=== PATIENT | male | born 1995 | race Two or more races ===

== ENCOUNTER 2020-07-26 14:54 | Inpatient (IN) ==
[2020-07-26] MEDS ORDERED: Cefepime 2 GM in Dextrose 2 GM/50 ML BAG IV ONE (15:32)
[2020-07-26] MEDS ORDERED: LACTATED RINGERS IV SCH (16:00)
[2020-07-26] MEDS ORDERED: Filgrastim* 480 MCG VIAL (AUTOSUB = ZARXIO*) SUBCUT ONE (16:01)
[2020-07-26] MEDS ORDERED: Ondansetron 4 mg VIAL 2 MG/ML 2 ml VIAL IV PRN (16:26)
[2020-07-26] MEDS ORDERED: Enoxaparin 40 MG/0.4 ML SYR SUBCUT SCH (17:00)
[2020-07-26 17:05] LABS: Albumin 4.3 g/dL (3.2-5.2); BUN/Creatinine Ratio 12.1 (8-20); Calcium 9.1 mg/dL (8.6-10.3); EGFR African American 208.3 (>60); EGFR Non-African American 172.1 (>60); Globulin 2.2 g/dL (2-4); Potassium 3.8 mmol/L (3.5-5.0); Total Bilirubin 0.3 mg/dL (0.2-1.0); Total Protein 6.5 g/dL (6.4-8.9)
[2020-07-26 17:07] LABS: Activated Partial Thrombo Time 33.4 seconds (26.0-38.0); INR 1.22 (0.82-1.09)
[2020-07-26 17:25] LABS: Hematocrit 27 % (42-52); Hemoglobin 9.1 g/dL (14.0-18.0); Mean Corpuscular HGB Conc 34 g/dL (31-36); Mean Corpuscular Hemoglobin 29 pg (27-31); Mean Corpuscular Volume 86 fL (80-94); Red Blood Count 3.11 10^6 /uL (4.18-5.48); Red Cell Distribution Width 12 % (10-15); White Blood Count 0.7 10^3/uL (3.5-10.8)
[2020-07-26 17:26] LABS: ABS Lymphocytes 0.6 10^3/ul (1.0-4.8); ABS Monocytes 0.1 10^3/ul (0-0.8); Eosinophil % 0.8 %; Lymphocyte % 86.1 %; Nucleated Red Blood Cells % 0.8
[2020-07-26 18:13] LABS: Mean Platelet Volume 9.6 fL (7.4-10.4); Platelet Count 66 10^3/uL (150-450)
[2020-07-26] MEDS: NS 0.9% 1000 ml BAG 1,000 ML IV SCH (19:49)
[2020-07-26] MEDS: Senna TAB 8.6 mg TAB PO SCH (19:55)
[2020-07-26] MEDS: Cefepime 2 GM in Dextrose 2 GM/50 ML BAG IV SCH (23:59)
[2020-07-27 00:56] LABS: Urine Appearance Clear; Urine Bilirubin Negative (Negative); Urine Blood Negative (Negative); Urine Color Colorless; Urine Glucose Negative (Negative); Urine Ketones Negative (Negative); Urine Nitrite Negative (Negative); Urine Protein Negative (Negative); Urine Specific Gravity 1.006 (1.010-1.030); Urine Urobilinogen Negative (Negative)
[2020-07-27 05:46] LABS: Albumin 4.4 g/dL (3.2-5.2); Albumin/Globulin Ratio 1.8 (1-3); BUN/Creatinine Ratio 18.9 (8-20); Calcium 9.6 mg/dL (8.6-10.3); EGFR African American 231.1 (>60); Globulin 2.5 g/dL (2-4); Potassium 4.3 mmol/L (3.5-5.0); Total Bilirubin 0.4 mg/dL (0.2-1.0); Total Protein 6.9 g/dL (6.4-8.9)
[2020-07-27 08:01] LABS: Hematocrit 27 % (42-52); Hemoglobin 9.3 g/dL (14.0-18.0); Mean Corpuscular HGB Conc 34 g/dL (31-36); Mean Corpuscular Hemoglobin 29 pg (27-31); Mean Corpuscular Volume 86 fL (80-94); Mean Platelet Volume 9.9 fL (7.4-10.4); Platelet Count 67 10^3/uL (150-450); Red Blood Count 3.15 10^6 /uL (4.18-5.48); Red Cell Distribution Width 13 % (10-15); White Blood Count 0.5 10^3/uL (3.5-10.8)
[2020-07-27] MEDS: Cefepime 2 GM in Dextrose 2 GM/50 ML BAG IV SCH ×3 (08:43→23:48)
[2020-07-27] MEDS: Senna TAB 8.6 mg TAB PO SCH ×2 (09:05→20:55)
[2020-07-27] MEDS: NS 0.9% 1000 ml BAG 1,000 ML IV SCH (16:01)
[2020-07-28] MEDS: Cefepime 2 GM in Dextrose 2 GM/50 ML BAG IV SCH (07:51)
[2020-07-28] MEDS: Senna TAB 8.6 mg TAB PO SCH (07:52)
[2020-07-28 10:29] VITALS: BP 115/59
[2020-07-28 10:49] LABS: ABS Lymphocytes 0.8 10^3/ul (1.0-4.8); ABS Monocytes 0.7 10^3/ul (0-0.8); ABS Neutrophils 4.2 10^3/ul (1.5-7.7); Hematocrit 28 % (42-52); Hemoglobin 10.1 g/dL (14.0-18.0); Lymphocyte % 13.7 %; Mean Corpuscular HGB Conc 36 g/dL (31-36); Mean Corpuscular Hemoglobin 30 pg (27-31); Mean Corpuscular Volume 85 fL (80-94); Mean Platelet Volume 9.4 fL (7.4-10.4); Nucleated Red Blood Cells % 0.1; Platelet Count 70 10^3/uL (150-450); Red Blood Count 3.32 10^6 /uL (4.18-5.48); Red Cell Distribution Width 12 % (10-15); White Blood Count 5.7 10^3/uL (3.5-10.8)
[2020-07-28 11:06] LABS: Albumin 4.4 g/dL (3.2-5.2); Albumin/Globulin Ratio 1.8 (1-3); BUN/Creatinine Ratio 17.5 (8-20); Calcium 9.6 mg/dL (8.6-10.3); EGFR African American 212.5 (>60); EGFR Non-African American 175.6 (>60); Globulin 2.5 g/dL (2-4); Potassium 3.9 mmol/L (3.5-5.0); Total Bilirubin 0.4 mg/dL (0.2-1.0); Total Protein 6.9 g/dL (6.4-8.9)
== END 2020-07-28 13:00 | disposition home or self-care (01) | DRG 660 ==
LOC: ED 14:54 → MEDTELE 16:24
PROVIDERS: ADMIT Internal Medicine; ATTEND Internal Medicine Hematology & Oncology

== ENCOUNTER 2020-10-04 13:38 | Inpatient (IN) ==
[2020-10-04 14:26] LABS: ABS Lymphocytes 0.4 10^3/ul (1.0-4.8); Eosinophil % 0.7 %; Hematocrit 22 % (42-52); Hemoglobin 7.6 g/dL (14.0-18.0); Lymphocyte % 86.5 %; Mean Corpuscular HGB Conc 34 g/dL (31-36); Mean Corpuscular Hemoglobin 31 pg (27-31); Mean Corpuscular Volume 91 fL (80-94); Mean Platelet Volume 9.3 fL (7.4-10.4); Nucleated Red Blood Cells % 0.2; Platelet Count 25 10^3/uL (150-450); Red Blood Count 2.43 10^6 /uL (4.18-5.48); Red Cell Distribution Width 16 % (10-15); White Blood Count 0.4 10^3/uL (3.5-10.8)
[2020-10-04 14:35] LABS: Albumin 4.8 g/dL (3.2-5.2); Albumin/Globulin Ratio 2.2 (1-3); BUN/Creatinine Ratio 11.9 (8-20); Calcium 9.7 mg/dL (8.6-10.3); EGFR African American 204.2 (>60); EGFR Non-African American 168.8 (>60); Globulin 2.2 g/dL (2-4); Potassium 3.8 mmol/L (3.5-5.0); Total Bilirubin 0.5 mg/dL (0.2-1.0)
[2020-10-04] MEDS ORDERED: Ondansetron 4 mg VIAL 2 MG/ML 2 ml VIAL IV PRN (14:56)
[2020-10-04 15:24] LABS: Urine Appearance Clear; Urine Bilirubin Negative (Negative); Urine Blood Negative (Negative); Urine Color Straw; Urine Glucose Negative (Negative); Urine Ketones Negative (Negative); Urine Nitrite Negative (Negative); Urine Protein Negative (Negative); Urine Specific Gravity 1.004 (1.010-1.030); Urine Urobilinogen Negative (Negative)
[2020-10-04] MEDS ORDERED: NS 0.9% 1000 ml BAG 1,000 ML IV SCH (17:45)
[2020-10-04] MEDS: Cefepime 2 GM in Dextrose 2 GM/50 ML BAG IV SCH (17:50)
[2020-10-05] MEDS: Cefepime 2 GM in Dextrose 2 GM/50 ML BAG IV SCH ×3 (01:18→16:36)
[2020-10-05 05:33] LABS: Albumin 4.5 g/dL (3.2-5.2); BUN/Creatinine Ratio 16.4 (8-20); Calcium 9.4 mg/dL (8.6-10.3); EGFR African American 221.4 (>60); Globulin 2.3 g/dL (2-4); Potassium 4.2 mmol/L (3.5-5.0); Total Bilirubin 0.5 mg/dL (0.2-1.0); Total Protein 6.8 g/dL (6.4-8.9)
[2020-10-05 06:15] LABS: ABS Lymphocytes 0.4 10^3/ul (1.0-4.8); ABS Monocytes 0.2 10^3/ul (0-0.8); ABS Neutrophils 0.1 10^3/ul (1.5-7.7); Eosinophil % 0.5 %; Hematocrit 21 % (42-52); Hemoglobin 7.2 g/dL (14.0-18.0); Lymphocyte % 63.2 %; Mean Corpuscular HGB Conc 34 g/dL (31-36); Mean Corpuscular Hemoglobin 31 pg (27-31); Mean Corpuscular Volume 92 fL (80-94); Mean Platelet Volume 8.9 fL (7.4-10.4); Platelet Count 17 10^3/uL (150-450); Red Blood Count 2.28 10^6 /uL (4.18-5.48); Red Cell Distribution Width 16 % (10-15); White Blood Count 0.6 10^3/uL (3.5-10.8)
[2020-10-05] MEDS: NS 0.9% 1000 ml BAG 1,000 ML IV SCH (21:38)
[2020-10-06] MEDS: Cefepime 2 GM in Dextrose 2 GM/50 ML BAG IV SCH ×2 (01:42→09:07)
[2020-10-06 06:02] LABS: Hematocrit 26 % (42-52); Mean Corpuscular HGB Conc 35 g/dL (31-36); Mean Corpuscular Hemoglobin 32 pg (27-31); Mean Corpuscular Volume 89 fL (80-94); Mean Platelet Volume 9.5 fL (7.4-10.4); Platelet Count 11 10^3/uL (150-450); Red Blood Count 2.87 10^6 /uL (4.18-5.48); Red Cell Distribution Width 16 % (10-15); White Blood Count 2.9 10^3/uL (3.5-10.8)
[2020-10-06 06:12] LABS: Albumin 4.2 g/dL (3.2-5.2); BUN/Creatinine Ratio 16.1 (8-20); EGFR African American 216.9 (>60); EGFR Non-African American 179.2 (>60); Globulin 2.1 g/dL (2-4); Potassium 3.8 mmol/L (3.5-5.0); Total Bilirubin 0.6 mg/dL (0.2-1.0); Total Protein 6.3 g/dL (6.4-8.9)
[2020-10-06] MEDS: NS 0.9% 1000 ml BAG 1,000 ML IV SCH (06:21)
[2020-10-06 06:32] LABS: Tear Drop Cells 1+
[2020-10-06 06:33] LABS: ABS Basophils 0.1 10^3/ul (0-0.2); ABS Lymphocytes 0.5 10^3/ul (1.0-4.8); ABS Monocytes 0.7 10^3/ul (0-0.8); ABS Neutrophils 1.6 10^3/ul (1.5-7.7); Eosinophil % 0.2 %; Lymphocyte % 17.7 %
[2020-10-06 08:47] VITALS: BP 109/51
== END 2020-10-06 13:20 | disposition home or self-care (01) | DRG 660 ==
LOC: CHOA 13:38 → SSU 14:56
PROVIDERS: ADMIT Internal Medicine Hematology & Oncology; ATTEND Internal Medicine Hematology & Oncology